=== PATIENT | male | born 1960 | race Caucasian/White ===

== ENCOUNTER 2020-06-09 06:14 | Inpatient (IN) | payer MEDICARE, OTHER ==
[~2020-06-09] VITALS: Ht 182.9 cm; Wt 156.0 kg
[~2020-06-09 06:14] MED LIST: Amox Tr-K Clv1 EAC2 PO; CARV25 PO; CEPH500 PO; FERSU300 PO; GABA300 PO; HYDACE5; HYDACE5 PO; HYDR1TAB94 PO; Hydrocodone-Ap1 EA23 PO; JANUMET XR 50-1 EAC1 PO; LORA1 PO; Metformin HCl500 M1 PO; OXYACE7.5T PO; RXOXYACE PO; SULTRIDS PO; TRIBENZOR 40-51 EAC1 PO; VERA180ER PO
--- NOTE | 2020-06-09 06:30 | NUR ---
Ambulatory in Day Surgery. Surgical site prepped with 2% Chlorhexidine cloth wipE. History, Chart, Medications and Allergies reviewed before start of procedure. Lungs clear T/O to Auscultation. Pre-Op teaching done. Pt verbalizes understanding.
--- NOTE | 2020-06-09 15:00 | NUR ---
PATIENT ARRIVED FROM THE OR VIA STRETCHER. HE IS ALERT. PRESENT AT THE BEDSIDE. ADMIT COMPLETE, SEE ASSESSMENT FOR MORE. PATIENT ON EPIDURAL 10MEQ/HR WITH 4MEQ PATIENT ADMIN BOLUS Q10MIN. PATIENT REPORTS ABSENT SENSATION IN FEET R/T DM NEUROPATHY. SENSATION THROUGHOUT, INCREASE NUMBING SENSATION AT MID UMBILICUS. HAGER PATENT AND DRIANING CLEAR DARK YELLOW URINE. LR@125ML/HR RUNNING. PATIENT AND ORIENTED TO ROOM, UNIT AND VISITOR POLICY. WILL CONT TO MONITOR.
--- NOTE | 2020-06-09 17:12 | NUR ---
SHIFT SUMMARY NO ACUTE CHANGES SINCE ADMIT. PATIENT REPORTS PAIN AT 2/10. APPEARS TO BE RESTING COMFORTABLE IN BED WITH CPAP ON AND 2L O2 BLEED. REMAINS AT BEDSIDE. SURGEON WAS IN TO SEE HIM AND GO OVER MORE DETAILS OF THE SURGERY AND PLAN FOR CARE. AND PATIENT WERE ABLE TO ASK QUESTIONS. WILL CONT TO MONITOR AND REPORT OFF TO OIL FIELD PUMPER.
[2020-06-10 04:39] LABS: BASOPHILS ABSOLUTE AUTO 0.01 K/mm3 (0.00-0.23); BASOPHILS PERCENT AUTO 0 % (0-2); EOSINOPHILS PERCENT AUTO 0 % (0-6); Hemoglobin 8.6 g/dL (13.5-17.5); IMMATURE GRAN ABSOLUTE AUTO 0.03 K/mm3 (0.00-0.10); IMMATURE GRAN PERCENT AUTO 0 % (0-1); LYMPHOCYTES ABSOLUTE AUTO 1.15 K/mm3 (0.84-5.20); LYMPHOCYTES PERCENT AUTO 15 % (21-46); MONOCYTES ABSOLUTE AUTO 0.56 K/mm3 (0.16-1.47); MONOCYTES PERCENT AUTO 7 % (4-13); Mean Corpuscular HGB 20.9 pg (26.0-34.0); Mean Corpuscular HGB Conc 29.7 g/dL (31.5-36.5); Mean Corpuscular Volume 70 fL (80-100); Mean Platelet Volume 9.4 fL (9.1-12.4); NEUTROPHILS ABSOLUTE AUTO 6.18 K/mm3 (1.96-9.15); NEUTROPHILS PERCENT AUTO 78 % (41-73); Platelet Count 472 K/mm3 (150-400); RDW Coefficient Variation 16.8 % (11.7-14.2); RDW Standard Deviation 41.8 fL (35.1-46.3); Red Blood Cell Count 4.12 M/mm3 (4.30-5.90); White Blood Cell Count 7.93 K/mm3 (4.00-11.30)
[2020-06-10 04:57] LABS: Anion Gap 7 mmol/L (6-16); Blood Urea Nitrogen 9 mg/dL (8-24); Bun/Creatinine Ratio 10.9 (12.0-20.0); CO2, Blood 29 mmol/L (21-32); Calcium, Blood 9.2 mg/dL (8.5-10.1); Chloride, Blood 105 mmol/L (98-108); Creatinine, Blood 0.83 mg/dL (0.60-1.20); Glomerular Filtration Rate >60 (60-); Glucose, Blood 128 mg/dL (70-99); Potassium, Blood 3.9 mmol/L (3.5-5.5); Sodium, Blood 141 mmol/L (136-145)
--- NOTE | 2020-06-10 05:12 | NUR ---
SHIFT SUMMARY POD1 LAP CONVERTED TO OPEN LAP CECILY SIGMOID. VSS. PT REPORTS PAIN LEVEL 0-3/10 T/O SHIFT. HE HAS FULL SENSATION. PT HAS ABD BINDER, ABD SHIRLEY DRESSING IS CDI. ABD MARLEY DRESSING WITH SEROSANG DRAIN. EPIDURAL REMAIN CDI, NO LEAKS NOTED. CLEAR DIET, TOLERATING ICE CHIP AND WATER DENIES N/V. INFUSING LR AND ABX ADMINSTERED. PT USED CPAP MACHINE AT BEDTIME. SLEPT T/O SHIFT. PT ALSO DENIES CP AND SOB. HE ALSO REPORTS NUMBNESS ON BILATERAL FEET (CHRONIC). CALL LIGHT WITHIN REACH. WILL PASS REPORT TO AM NURSE.
[2020-06-10 05:13] LABS: TOTAL CELLS COUNTED 2
--- NOTE | 2020-06-10 08:01 | NUR ---
EPIDURAL ASSESSMENT REDUCED SENSATION L2-L3 AND BELOW, NEUROPATHY OF LOWER LEGS AND FEET AT BASELINE. MOVES ANKLES AND TOES WELL. FEET WARM WITH STRONG PEDAL PULSES BILATERALLY.
--- NOTE | 2020-06-10 13:56 | NUR ---
UP TO EDGE OF BED 2 NURSES ASSISTED PATIENT TO SIT AT EDGE OF BED. WEAKNESS NOTED TO LEGS AND REQUIRED MINIMAL ASSISTANCE TO MOVE LEGS. SAT AT EDGE OF BED FOR 5 MINUTES. PT'S PAIN DID INCREASE BUT HE TOLERATED THE ACTIVITY WELL. ASSISTED BACK TO SITTING UP IN BED. CHANGED ESPARZA PAD.
--- NOTE | 2020-06-10 16:35 | NUR ---
SHIFT SUMMARY PATIENT PAIN CONTROLLED BETWEEN -07/17 WITH EPIDURAL. USING RAIL SWITCH OPERATOR BUTTON OCCASIONALLY. TOLERATING CLEAR LIQUIDS. SALINE LOCKED. HAGER PATENT BUT URINE IS CONCENTRATED. BOWEL TONES PRESENT BUT PATIENT DENIES FLATUS. UP TO EDGE OF BED ONCE TODAY. TOLERATED WELL BUT NEEDED ASSISTANCE TO MOVE LEGS DUE TO WEAKNESS. EPIDURAL SENSATION CHECKS REVEAL SOME NUMBNESS TO BILAT LOWER EXTREMETIES. HOWEVER HX NEUROPATHY IN FEET IS BASELINE. SHIRLEY DRESSING CHANGED ONCE THIS SHIFT. SMALL AMOUNT OF SANGUINOUS DRAINAGE. NEW SHIRLEY DRESSING UNABLE TO OBTAIN SEAL. MIDLINE ABD INCISION, LAP SITE, AND MARLEY DRAIN SITE WNL. ABD BINDER IN PLACE. PATIENT RESTING IN BED WITH FAMILY MEMBER PRESENT. USES CPAP WITH 2L O2 NEEDED WHEN SLEEPING.
--- NOTE | 2020-06-11 03:29 | NUR ---
ELECTRIC MOTORMAN SUMMARY A/OX4, DROWSY BUT EASILY AROUSABLE WITH VERBAL STIMULI. EPIDURAL PATENT, REPORTS PAIN OF 1-2, SENSATION INTACT; ABLE TO MOVE TOES, STRONG PEDAL PULSES BILATERALLY. PT REPORTS CHRONIC N/T TO BLE. SHIRLEY AND MARLEY DRAIN C/D/I, ABD BINDER IN PLACE. USE OF CPAP WITH 2L BLEED IN, CONT. BIOX IN PLACE WITH SATS GREATER THAN 92. TOLERATING CLEAR LIQUIDS, VSS. NO ACUTE CHANGES AT THIS TIME. BED IN LOWEST POSITION WITH CALL LIGHT IN REACH. WILL CONTINUE TO MONITOR AND REPORT TO ONCOMING RN.
[2020-06-11 04:25] LABS: BASOPHILS ABSOLUTE AUTO 0.04 K/mm3 (0.00-0.23); BASOPHILS PERCENT AUTO 1 % (0-2); EOSINOPHILS ABSOLUTE AUTO 0.07 K/mm3 (0.00-0.68); EOSINOPHILS PERCENT AUTO 1 % (0-6); Hematocrit 28.2 % (37.0-53.0); Hemoglobin 8.2 g/dL (13.5-17.5); IMMATURE GRAN ABSOLUTE AUTO 0.03 K/mm3 (0.00-0.10); IMMATURE GRAN PERCENT AUTO 1 % (0-1); LYMPHOCYTES ABSOLUTE AUTO 1.16 K/mm3 (0.84-5.20); LYMPHOCYTES PERCENT AUTO 19 % (21-46); MONOCYTES PERCENT AUTO 8 % (4-13); Mean Corpuscular HGB 21.1 pg (26.0-34.0); Mean Corpuscular HGB Conc 29.1 g/dL (31.5-36.5); Mean Corpuscular Volume 73 fL (80-100); Mean Platelet Volume 9.2 fL (9.1-12.4); NEUTROPHILS ABSOLUTE AUTO 4.23 K/mm3 (1.96-9.15); NEUTROPHILS PERCENT AUTO 70 % (41-73); Platelet Count 446 K/mm3 (150-400); RDW Coefficient Variation 16.9 % (11.7-14.2); RDW Standard Deviation 43.7 fL (35.1-46.3); Red Blood Cell Count 3.89 M/mm3 (4.30-5.90); White Blood Cell Count 6.03 K/mm3 (4.00-11.30)
[2020-06-11 04:40] LABS: Anion Gap 3 mmol/L (6-16); Blood Urea Nitrogen 7 mg/dL (8-24); Bun/Creatinine Ratio 8.7 (12.0-20.0); CO2, Blood 31 mmol/L (21-32); Calcium, Blood 9.2 mg/dL (8.5-10.1); Chloride, Blood 106 mmol/L (98-108); Glomerular Filtration Rate >60 (60-); Glucose, Blood 110 mg/dL (70-99); Sodium, Blood 140 mmol/L (136-145)
--- NOTE | 2020-06-11 11:38 | NUR ---
06/11/20 1138 Maritza Montez VERIFICATIONS: EDIT CHART.
--- NOTE | 2020-06-11 18:49 | NUR ---
SHIFT SUMMARY POD 2 SIGMOID COLON RESECTION PT AA0X4. MIDLINE DRESSING CDI. PT REPORTS PAIN TOLERABLE DURING THE SHIFT. INCREASE WITH MOVEMENT BUT REMAINS TOLERABLE. PT ABLE TO SIT AT SIDE OF BED WITH TWO ASSIST. UNABLE TO STAND AT THIS TIME, PT REPORTS NUMBNESS STILL PRESENT IN R THIGH PRIMARILY, FEET NUMB AT BASELINE PER PT. DECLINES PASSING FLATUS. DENIES NAUSEA WITH REGULAR DIET. PLAN IS TO POSSIBLY REMOVE EPIDURAL TOMORROW. DENIES SOB DURING SHIFT.
--- NOTE | 2020-06-12 05:34 | NUR ---
SHIFT SUMMARY POD 1 ABD I&D, A/O X4, VSS, TOLERATING PO, NO BM THIS SHIFT, TRANSFERS WELL W/ 1 PERSON ASSIST, VOIDING WELL, DENIES PAIN T/O SHIFT. NO ACUTE EVENTS THIS SHIFT. CALL LIGHT IN REACH, WILL CONTINUE TO MONITOR AND REPORT TO ONCOMING DAY RN.
--- NOTE | 2020-06-12 05:37 | NUR ---
SHIFT SUMMARY POD3 LAP TO OPEN SIGMOID RESECTION, A/O X4, VSS, TOLERATING PO, VOIDING WELL VIA HAGER, PASSING FLATUS, NON AMBULATORY W/ EPIDURAL IN PLACE, PT HAS FULL SENSATION TO COLD, TACTILE SENSATION LIMITED TO MID ABD, DENIES PAIN. CALL LIGHT IN REACH, WILL CONTINUE TO MONITOR AND REPORT TO ONCOMING DAY RN.
--- NOTE | 2020-06-12 19:21 | NUR ---
SHIFT SUMMARY: PATIENT A&O; CALM AND COOEPRATIVE WITH CARE. EPIDURAL CATHETER D/C'd THIS SHIFT; PT TOLERATED WELL; BANDAGE IN PLACE; C/D/I. MEDICATED FOR BACK PAIN PER EMAR. HAGER IN PLACE; PATENT & DRAINING. PT/OT FOLLOWING. REPROT GIVEN TO ONCOMING RN.
--- NOTE | 2020-06-13 03:52 | NUR ---
SHIFT SUMMARY POD4 SIGMOIND RESECTION, A/O X4, VSS, TOLERATING PO, PASSING FLATUS, NO BM THIS SHIFT, VOIDING WELL VIA HAGER, WILL REMOVE BEFORE END OF SHIFT, DENIES PAIN T/O SHIFT, RESTING COMFORTABLY. PT OCCASIONALLY DESATS TO HIGH 80'S WHILE SLEEPING W/ CPAP IN PLACE AND 2L 02, INCREASED TO 3L. DRESSING REMAINED C/D/I, SHIRLEY UNABLE TO GET GOOD SEAL DUE TO ADJACENT MARLEY DRAIN LINE AND ASSOCIATED BANDAGE. CALL LIGTH IN REACH, WILL CONTINUE TO MONITOR AND REPORT TO ONCOMING DAY RN.
--- NOTE | 2020-06-13 15:31 | NUR ---
pt has voided x 2 since glaser removed. pt's visiting with pt. pt is independent in room
--- NOTE | 2020-06-13 16:57 | NUR ---
SHIFT SUMMARY: PT REMAINED A/O X 4, PLEASANT/COOPERATIVE, UP IN CHAIR ALL SHIFT, REPORTS PAIN CONTROLLED WELL PER MAR, TOLERATED PO INTAKE, NO N/V. PT VOIDING FOLLOWING HAGER REMOVAL. PT'S MARLEY DRAIN WITH 110 ML SEROSANGUINOUS LIQUID OUT, PATENT AND DRAINING. PT'S MIDLINE INCISION WITH SHIRLEY DRESSING C/D/I. MARLEY DRAIN POSITIONED SUCH THAT SHIRLEY IS NOT COMPRESSED. AWARE. OLD EPIDURAL SITE WNL.
--- NOTE | 2020-06-14 04:26 | NUR ---
SHIFT SUMMARY POD 5 LAP TO OPEN SIG COLON RESECTION, A/O X4, VSS, TOLERATING PO, PASSING FLATUS BUT NO BM THIS SHIFT, INDEPENDENT IN ROOM, SHOWERED BEFORE BED, PLACED NEW DRESSINGS (SHIRLEY CHANGED TO MEDIPORE DUE TO ADJACENT MARLEY DISRUPTING SHIRLEY SEAL), PT REPORTS FEELING "MUCH BETTER" AFTER SHOWERING, INDEPENDENT IN ROOM, VOIDING WELL. INCISION CLEAN AND DRY W/ NO SIGNS OF INFECTION. CALL LIGHT IN REACH, WILL CONTINUE TO MONITOR AND REPORT TO ONCOMING DAY RN.
[2020-06-14 10:25] LABS: BASOPHILS ABSOLUTE AUTO 0.05 K/mm3 (0.00-0.23); BASOPHILS PERCENT AUTO 1 % (0-2); EOSINOPHILS ABSOLUTE AUTO 0.42 K/mm3 (0.00-0.68); EOSINOPHILS PERCENT AUTO 7 % (0-6); Hematocrit 31.7 % (37.0-53.0); Hemoglobin 9.1 g/dL (13.5-17.5); IMMATURE GRAN ABSOLUTE AUTO 0.03 K/mm3 (0.00-0.10); IMMATURE GRAN PERCENT AUTO 1 % (0-1); LYMPHOCYTES ABSOLUTE AUTO 1.09 K/mm3 (0.84-5.20); LYMPHOCYTES PERCENT AUTO 18 % (21-46); MONOCYTES ABSOLUTE AUTO 0.31 K/mm3 (0.16-1.47); MONOCYTES PERCENT AUTO 5 % (4-13); Mean Corpuscular HGB 20.6 pg (26.0-34.0); Mean Corpuscular HGB Conc 28.7 g/dL (31.5-36.5); Mean Corpuscular Volume 72 fL (80-100); Mean Platelet Volume 9.1 fL (9.1-12.4); NEUTROPHILS ABSOLUTE AUTO 4.25 K/mm3 (1.96-9.15); NEUTROPHILS PERCENT AUTO 69 % (41-73); Platelet Count 522 K/mm3 (150-400); RDW Standard Deviation 42.4 fL (35.1-46.3); Red Blood Cell Count 4.41 M/mm3 (4.30-5.90); White Blood Cell Count 6.15 K/mm3 (4.00-11.30)
[2020-06-14 10:40] LABS: Anion Gap 6 mmol/L (6-16); Blood Urea Nitrogen 8 mg/dL (8-24); Bun/Creatinine Ratio 10.4 (12.0-20.0); CO2, Blood 29 mmol/L (21-32); Calcium, Blood 9.8 mg/dL (8.5-10.1); Chloride, Blood 104 mmol/L (98-108); Creatinine, Blood 0.77 mg/dL (0.60-1.20); Glomerular Filtration Rate >60 (60-); Glucose, Blood 211 mg/dL (70-99); Potassium, Blood 4.1 mmol/L (3.5-5.5); Sodium, Blood 139 mmol/L (136-145)
[2020-06-14] MEDS ORDERED: HYDR1TAB94 PO (12:34)
--- NOTE | 2020-06-14 13:49 | NUR ---
DISCHARGE PT DISCHARGED HOME FROM UNIT AT APROX 1345. PT AND GIVEN WRITTEN AND VERBAL DISCHARGE INSTRUCTIONS AND BOTH VERBALIZED UNDERSTANDING OF THESE INSTRUCTIONS. IV REMOVED, PT TOLERATED WELL. WHEELCHAIR TO CAR.
[2020-07-06] MEDS ORDERED: OMEP20ER PO (14:06)
== END 2020-06-14 13:35 | disposition home or self-care (01) | DRG 330 ==
LOC: SURS 06:14 → PRE IP 07:30 → SURS 16:39
PROVIDERS: ADMIT Surgery
PROC: 0DTN0ZZ Resection of Sigmoid Colon, Open Approach (ICD-10-PCS; principal; 2020-06-09 07:30)
PROC: 0DJD4ZZ Inspection of Lower Intestinal Tract, Percutaneous Endoscopic Approach (ICD-10-PCS; 2020-06-09 07:30)
DX: C18.7 Malignant neoplasm of sigmoid colon (principal); Z68.43 Body mass index [BMI] 50.0-59.9, adult; J45.909 Unspecified asthma, uncomplicated; E11.9 Type 2 diabetes mellitus without complications; Z98.890 Other specified postprocedural states; Z79.899 Other long term (current) drug therapy; Z79.84 Long term (current) use of oral hypoglycemic drugs; E66.01 Morbid (severe) obesity due to excess calories; I10 Essential (primary) hypertension
CPT/HCPCS: 36415; 80048; 82947; 85025; 86850; 86900; 86901; 88309; 94660; 94762; A9270; J0295; J0690; J1100; J1650; J1885; J2250; J2370; J2405; J2704; J2710; J3010; J7120

== ENCOUNTER 2020-07-12 07:56 | Day surgery (SDC) | payer MEDICARE, OTHER ==
[~2020-07-12 07:56] MED LIST changes: +OMEP20ER PO
--- NOTE | 2020-07-12 11:34 | NUR ---
Dressing to procedure site clean, dry, intact with no visible drainage, swelling, erythema or bruising noted.
--- NOTE | 2020-07-12 11:52 | NUR ---
Discharge instructions reviewed with patient. Patient verbalizes understanding. Copy given to patient to take home. Patient States Post-Procedure ride home has been arranged.
--- NOTE | 2020-07-12 12:05 | NUR ---
Dressing to procedure site clean, dry, intact with no visible drainage, swelling, erythema or bruising noted. Discharged via wheelchair to private car for ride home.
== END 2020-07-12 12:20 | disposition home or self-care (01) ==
LOC: ORSCMMR 07:56 → ORD 09:45 → ORSCMMR 12:20
PROVIDERS: Surgery
PROC: 05HM33Z Insertion of Infusion Device into Right Internal Jugular Vein, Percutaneous Approach (ICD-10-PCS; principal; 2020-07-12 09:45)
PROC: B5131ZA Fluoroscopy of Right Jugular Veins using Low Osmolar Contrast, Guidance (ICD-10-PCS; principal; 2020-07-12 09:45)
DX: C18.9 Malignant neoplasm of colon, unspecified (principal); I10 Essential (primary) hypertension; E11.9 Type 2 diabetes mellitus without complications; J45.909 Unspecified asthma, uncomplicated; Z79.84 Long term (current) use of oral hypoglycemic drugs; Z79.899 Other long term (current) drug therapy
CPT/HCPCS: 77001; 82947; A9270; C1788; J0690; J1100; J1642; J2250; J2405; J2704; J3010; J7120

== ENCOUNTER → 2020-10-23 | Outpatient (CLI) | payer OTHER ==
[2020-10-23 13:27] LABS: BASOPHILS ABSOLUTE AUTO 0.02 K/mm3 (0.00-0.23); BASOPHILS PERCENT AUTO 1 % (0-2); EOSINOPHILS ABSOLUTE AUTO 0.05 K/mm3 (0.00-0.68); EOSINOPHILS PERCENT AUTO 2 % (0-6); Hematocrit 36.2 % (37.0-53.0); Hemoglobin 12.6 g/dL (13.5-17.5); IMMATURE GRAN ABSOLUTE AUTO 0.01 K/mm3 (0.00-0.10); IMMATURE GRAN PERCENT AUTO 0 % (0-1); LYMPHOCYTES ABSOLUTE AUTO 1.19 K/mm3 (0.84-5.20); LYMPHOCYTES PERCENT AUTO 45 % (21-46); MONOCYTES ABSOLUTE AUTO 0.05 K/mm3 (0.16-1.47); MONOCYTES PERCENT AUTO 2 % (4-13); Mean Corpuscular HGB 28.6 pg (26.0-34.0); Mean Corpuscular HGB Conc 34.8 g/dL (31.5-36.5); Mean Corpuscular Volume 82 fL (80-100); Mean Platelet Volume 10.7 fL (9.1-12.4); NEUTROPHILS ABSOLUTE AUTO 1.34 K/mm3 (1.96-9.15); NEUTROPHILS PERCENT AUTO 50 % (41-73); Platelet Count 182 K/mm3 (150-400); RDW Coefficient Variation 18.2 % (11.7-14.2); RDW Standard Deviation 54.3 fL (35.1-46.3); White Blood Cell Count 2.66 K/mm3 (4.00-11.30)
== END | disposition home or self-care (01) ==
LOC: LAB SHORT 13:23
PROVIDERS: Physician Assistant
DX: R22.42 Localized swelling, mass and lump, left lower limb (principal)
CPT/HCPCS: 85025

== ENCOUNTER → 2020-12-22 | Outpatient (CLI) | payer OTHER | END | disposition home or self-care (01) | LOC: LAB SHORT 10:00 | DX: E11.621 Type 2 diabetes mellitus with foot ulcer (principal); L97.509 Non-pressure chronic ulcer of other part of unspecified foot with unspecified severity | CPT/HCPCS: 87070; 87205 ==

== ENCOUNTER 2022-02-17 06:04 | Day surgery (SDC) | payer OTHER ==
[~2022-02-17] VITALS: Ht 185.4 cm; Wt 183.3 kg
[2022-02-17] MEDS ORDERED: LOSA25 PO (06:30)
[2022-02-17] MEDS ORDERED: PIOG15 PO (06:30)
[2022-02-17] MEDS ORDERED: AMLO5 PO (06:31)
--- NOTE | 2022-02-17 07:29 | NUR ---
02/17/22 0729 Mathieu Laureano History, Chart, Medications and Allergies reviewed before start of procedure.MONITOR INTACT WITH CONTINUOUS PULSE OXIMETRY AND INTERMITTENT BP.3-LEAD EKG REVIEWED WITH PHYSICIAN PRIOR TO START OF PROCEDURE.O2 VIA POM INTACT THROUGHOUT SEDATION/PROCEDURE.
--- NOTE | 2022-02-17 08:34 | NUR ---
Discharge instructions reviewed with patient. Patient verbalizes understanding. Copy given to patient to take home. NO C/O PAIN OR NAUSEA, PT TOLERATING PO FLUIDS AND FOOD. PT STATES HE IS READY TO GO HOME. Discharged via wheelchair to private car for ride home.
== END 2022-02-17 08:38 | disposition home or self-care (01) ==
LOC: ORSCMMR 06:04 → ORD 07:30 → ORSCMMR 08:38
PROVIDERS: Surgery
PROC: 0DJD8ZZ Inspection of Lower Intestinal Tract, Via Natural or Artificial Opening Endoscopic (ICD-10-PCS; principal; 2022-02-17 07:30)
DX: Z85.038 Personal history of other malignant neoplasm of large intestine (principal); I10 Essential (primary) hypertension; E11.9 Type 2 diabetes mellitus without complications; J45.909 Unspecified asthma, uncomplicated; G47.33 Obstructive sleep apnea (adult) (pediatric); E66.9 Obesity, unspecified; Z68.43 Body mass index [BMI] 50.0-59.9, adult; Z79.84 Long term (current) use of oral hypoglycemic drugs; Z79.899 Other long term (current) drug therapy
CPT/HCPCS: 82947; J2704; J7120

== ENCOUNTER 2023-05-17 10:19 | Day surgery (SDC) | payer OTHER ==
[2023-05-17] VITALS (12 sets, daily range): BP systolic 130–183; BP diastolic 50–98
[~2023-05-17] VITALS: Ht 182.9 cm; Wt 185.7 kg
[~2023-05-17 10:19] MED LIST changes: +AMLO5 PO; +LOSA25 PO; +ONDA4ODT MM; +OZEMPIC1 MG/0.72 SC; +PIOG15 PO; +PREGABALIN25 MG PO
[2023-05-17] MEDS ORDERED: CeFAZolin Sodium 2,000 MG in NS 50 ML IV SCH (11:40)
[2023-05-17] MEDS ORDERED: Lactated Ringer's 1,000 ML IV SCH (11:40)
[2023-05-17] MEDS ORDERED: CeFAZolin Sodium 1,000 MG in NS 50 ML IV ONE (12:20)
[2023-05-17] MEDS ORDERED: CeFAZolin 1000MG in D5W 50 ML IV ONE (12:20)
--- NOTE | 2023-05-17 12:38 | NUR ---
Patient up to Ambulate independently. Gait steady. Surgical site prepped with 2% Chlorhexidine cloth wipe. History, Chart, Medications and Allergies reviewed before start of procedure.Lungs clear T/O to Auscultation. Patient confirms NPO status and agrees with scheduled surgery. Pre-Op teaching done. Pt verbalizes understanding. Patient States Post-Procedure ride home has been arranged. Patient reports completing Chlorhexadine shower X2 prior to admission to hospital.
[2023-05-17 13:00] LABS: BASOPHILS ABSOLUTE AUTO 0.03 K/mm3 (0.00-0.23); BASOPHILS PERCENT AUTO 1 % (0-2); EOSINOPHILS PERCENT AUTO 3 % (0-6); Hemoglobin 14.9 g/dL (13.5-17.5); IMMATURE GRAN ABSOLUTE AUTO 0.01 K/mm3 (0.00-0.10); IMMATURE GRAN PERCENT AUTO 0 % (0-1); LYMPHOCYTES ABSOLUTE AUTO 1.14 K/mm3 (0.84-5.20); LYMPHOCYTES PERCENT AUTO 18 % (21-46); MONOCYTES ABSOLUTE AUTO 0.39 K/mm3 (0.16-1.47); MONOCYTES PERCENT AUTO 6 % (4-13); Mean Corpuscular HGB 30.8 pg (26.0-34.0); Mean Corpuscular HGB Conc 36.3 g/dL (31.5-36.5); Mean Corpuscular Volume 85 fL (80-100); Mean Platelet Volume 9.6 fL (9.1-12.4); NEUTROPHILS ABSOLUTE AUTO 4.74 K/mm3 (1.96-9.15); NEUTROPHILS PERCENT AUTO 73 % (41-73); Platelet Count 239 K/mm3 (150-400); RDW Standard Deviation 39.7 fL (35.1-46.3); Red Blood Cell Count 4.84 M/mm3 (4.30-5.90); White Blood Cell Count 6.51 K/mm3 (4.00-11.30)
[2023-05-17 13:29] LABS: Albumin, Blood 3.6 g/dL (3.4-5.0); Albumin/Globulin Ratio 1.2 (0.8-1.8); Bilirubin, Total 0.8 mg/dL (0.1-1.0); Bun/Creatinine Ratio 12.9 (12.0-20.0); Calcium, Blood 10.3 mg/dL (8.5-10.1); Creatinine, Blood 0.78 mg/dL (0.60-1.20); Globulin, Blood 3.1 g/dL (2.2-4.0); Total Protein, Blood 6.7 g/dL (6.4-8.2)
[2023-05-17] MEDS ORDERED: Bupivacaine 0.5% HCl 5 MG/ML 30MLVIAL ONE (13:30)
[2023-05-17] MEDS ORDERED: Lidocaine HCl 1% 30 ML SDV ONE (13:30)
[2023-05-17] MEDS ORDERED: propofoL 0 ML IV ONE (13:36)
[2023-05-17] MEDS ORDERED: FentaNYL Citrate 50 MCG/ML 2 ML Injection ONE (13:37)
[2023-05-17] MEDS ORDERED: propofoL 20 ML IV ONE (13:48)
[2023-05-17] MEDS ORDERED: Dexamethasone Sod Phos 10 MG/ML 1ML VIAL ONE (14:10)
[2023-05-17] MEDS ORDERED: Ondansetron HCl 2 MG / ML 2ML Vial ONE (14:24)
[2023-05-17] MEDS ORDERED: HYDROcodone 5-APAP 325 TAB PO PRN (15:10)
--- NOTE | 2023-05-17 16:06 | NUR ---
Patient up to Ambulate independently. Gait steady. VSS AND CONSISTENT WITH PT BASELINE. PT HAS NO COMPLAINTS AND VERBALIZES READINESS TO GO HOME. Discharge instructions reviewed with patient. Patient verbalizes understanding. Copy given to patient to take home. Dressing to procedure site clean, dry, intact with no visible drainage, swelling, erythema or bruising noted. Patient States Post-Procedure ride home has been arranged. Discharged via wheelchair to private car for ride home.
== END 2023-05-17 16:15 | disposition home or self-care (01) ==
LOC: ORSCMMR 10:19
PROVIDERS: Surgery
PROC: 0JH63WZ Insertion of Totally Implantable Vascular Access Device into Chest Subcutaneous Tissue and Fascia, Percutaneous Approach (ICD-10-PCS; principal; 2023-05-17 11:45)
PROC: B543ZZA Ultrasonography of Right Jugular Veins, Guidance (ICD-10-PCS; principal; 2023-05-17 11:45)
PROC: 05HM33Z Insertion of Infusion Device into Right Internal Jugular Vein, Percutaneous Approach (ICD-10-PCS; principal; 2023-05-17 11:45)
DX: C18.7 Malignant neoplasm of sigmoid colon (principal); I10 Essential (primary) hypertension; G47.33 Obstructive sleep apnea (adult) (pediatric); E11.9 Type 2 diabetes mellitus without complications; E66.01 Morbid (severe) obesity due to excess calories; Z68.43 Body mass index [BMI] 50.0-59.9, adult; Z79.84 Long term (current) use of oral hypoglycemic drugs; Z79.899 Other long term (current) drug therapy
CPT/HCPCS: 77001; 80053; 82947; 85025; 93005; 93010; C1788; J0690; J1100; J1642; J2405; J2704; J3010; J7120

== ENCOUNTER → 2024-04-14 | Outpatient (CLI) | payer OTHER | END | disposition home or self-care (01) | LOC: LAB 17:29 → LAB SHORT 17:29 | DX: E11.621 Type 2 diabetes mellitus with foot ulcer (principal); L97.519 Non-pressure chronic ulcer of other part of right foot with unspecified severity | CPT/HCPCS: 87070; 87205 ==

== ENCOUNTER → 2024-06-17 | Outpatient (CLI) | payer OTHER | LOC: LAB SHORT 11:51 → LAB 11:51 | DX: C18.7 Malignant neoplasm of sigmoid colon (principal) | CPT/HCPCS: 82378 ==

== ENCOUNTER 2024-07-01 10:29 | Emergency (ER) | payer OTHER ==
[~2024-07-01] VITALS: Ht 182.9 cm; Wt 154.2 kg
[2024-07-01 11:16] LABS: BASOPHILS ABSOLUTE AUTO 0.02 K/mm3 (0.00-0.23); BASOPHILS PERCENT AUTO 0 % (0-2); EOSINOPHILS ABSOLUTE AUTO 0.01 K/mm3 (0.00-0.68); EOSINOPHILS PERCENT AUTO 0 % (0-6); Hematocrit 43.2 % (37.0-53.0); Hemoglobin 14.9 g/dL (13.5-17.5); IMMATURE GRAN ABSOLUTE AUTO 0.03 K/mm3 (0.00-0.10); IMMATURE GRAN PERCENT AUTO 0 % (0-1); LYMPHOCYTES ABSOLUTE AUTO 0.62 K/mm3 (0.84-5.20); LYMPHOCYTES PERCENT AUTO 7 % (21-46); MONOCYTES ABSOLUTE AUTO 0.98 K/mm3 (0.16-1.47); MONOCYTES PERCENT AUTO 12 % (4-13); Mean Corpuscular HGB 30.2 pg (26.0-34.0); Mean Corpuscular HGB Conc 34.5 g/dL (31.5-36.5); Mean Corpuscular Volume 87 fL (80-100); Mean Platelet Volume 9.7 fL (9.1-12.4); NEUTROPHILS ABSOLUTE AUTO 6.83 K/mm3 (1.96-9.15); NEUTROPHILS PERCENT AUTO 81 % (41-73); Platelet Count 435 K/mm3 (150-400); RDW Coefficient Variation 14.1 % (11.7-14.2); RDW Standard Deviation 44.2 fL (35.1-46.3); Red Blood Cell Count 4.94 M/mm3 (4.30-5.90); White Blood Cell Count 8.49 K/mm3 (4.00-11.30)
[2024-07-01 11:47] LABS: Albumin, Blood 2.9 g/dL (3.4-5.0); Albumin/Globulin Ratio 0.8 (0.8-1.8); Bun/Creatinine Ratio 9.9 (12.0-20.0); Calcium, Blood 10.9 mg/dL (8.5-10.1); Creatinine, Blood 0.7 mg/dL (0.60-1.20); Globulin, Blood 3.8 g/dL (2.2-4.0); Total Protein, Blood 6.7 g/dL (6.4-8.2)
[2024-07-01] MEDS ORDERED: NS 1,000 ML IV SCH (12:30)
[2024-07-01] MEDS ORDERED: Ondansetron HCl 2 MG / ML 2ML Vial IV ONE (12:30)
[2024-07-01] MEDS ORDERED: Ketorolac Tromethamine 15mg Vial IV ONE (12:30)
[2024-07-01] MEDS ORDERED: METO10 PO (14:42)
[2024-07-01] MEDS ORDERED: Roxicodone5 MG PO (14:42)
[2024-07-01 15:00] VITALS: BP 145/87
== END 2024-07-01 15:08 | disposition home or self-care (01) ==
LOC: ER 10:29
PROVIDERS: Emergency Medicine
DX: R10.84 Generalized abdominal pain (principal); G89.3 Neoplasm related pain (acute) (chronic); C78.7 Secondary malignant neoplasm of liver and intrahepatic bile duct; C18.9 Malignant neoplasm of colon, unspecified; E11.9 Type 2 diabetes mellitus without complications
CPT/HCPCS: 74018; 74177; 80053; 83690; 85025; 96361; 96374; 96375; 99284-25; J1885; J2405; J7030; Q9967

== ENCOUNTER 2024-07-04 18:48 | Emergency (ER) | payer OTHER ==
[~2024-07-04] VITALS: Ht 190.5 cm; Wt 154.2 kg
[~2024-07-04 18:48] MED LIST changes: +METO10 PO; +Roxicodone5 MG PO
[2024-07-04] MEDS ORDERED: Ondansetron HCl 2 MG / ML 2ML Vial IV ONE (20:00)
[2024-07-04] MEDS ORDERED: Morphine Sulfate 4 MG/1 ML Injection IV ONE ×2 (20:00→21:35)
[2024-07-04] MEDS ORDERED: NS 1,000 ML IV SCH (20:15)
[2024-07-04 20:36] LABS: Albumin, Blood 2.4 g/dL (3.4-5.0); Albumin/Globulin Ratio 0.8 (0.8-1.8); Bilirubin, Total 2.8 mg/dL (0.1-1.0); Calcium, Blood 9.2 mg/dL (8.5-10.1); Creatinine, Blood 0.68 mg/dL (0.60-1.20); Globulin, Blood 3.1 g/dL (2.2-4.0); Potassium, Blood 3.7 mmol/L (3.5-5.5); Total Protein, Blood 5.5 g/dL (6.4-8.2)
[2024-07-04 20:47] LABS: BASOPHILS ABSOLUTE AUTO 0.01 K/mm3 (0.00-0.23); BASOPHILS PERCENT AUTO 0 % (0-2); EOSINOPHILS PERCENT AUTO 0 % (0-6); Hematocrit 40.8 % (37.0-53.0); Hemoglobin 13.5 g/dL (13.5-17.5); IMMATURE GRAN ABSOLUTE AUTO 0.08 K/mm3 (0.00-0.10); IMMATURE GRAN PERCENT AUTO 2 % (0-1); LYMPHOCYTES ABSOLUTE AUTO 0.33 K/mm3 (0.84-5.20); LYMPHOCYTES PERCENT AUTO 6 % (21-46); MONOCYTES ABSOLUTE AUTO 0.75 K/mm3 (0.16-1.47); MONOCYTES PERCENT AUTO 15 % (4-13); Mean Corpuscular HGB 30.1 pg (26.0-34.0); Mean Corpuscular HGB Conc 33.1 g/dL (31.5-36.5); Mean Corpuscular Volume 91 fL (80-100); Mean Platelet Volume 10.1 fL (9.1-12.4); NEUTROPHILS ABSOLUTE AUTO 3.98 K/mm3 (1.96-9.15); NEUTROPHILS PERCENT AUTO 77 % (41-73); Platelet Count 497 K/mm3 (150-400); RDW Coefficient Variation 14.7 % (11.7-14.2); RDW Standard Deviation 48.5 fL (35.1-46.3); Red Blood Cell Count 4.49 M/mm3 (4.30-5.90); White Blood Cell Count 5.15 K/mm3 (4.00-11.30)
[2024-07-04 22:40] VITALS: BP 192/110
[2024-07-04] MEDS ORDERED: Percocet 10-321 EACH PO (22:42)
== END 2024-07-04 23:04 | disposition home or self-care (01) ==
LOC: ER 18:48
PROVIDERS: Student in an Organized Health Care Education/Training Program
DX: R06.02 Shortness of breath (principal); E11.9 Type 2 diabetes mellitus without complications; I10 Essential (primary) hypertension; G47.33 Obstructive sleep apnea (adult) (pediatric); Z79.899 Other long term (current) drug therapy; Z88.0 Allergy status to penicillin
CPT/HCPCS: 71260; 80053; 84484; 85025; 93005; 93010; 96374-59; 96375-59; 96376-59; 99285-25; J1642; J2270; J2405; J7030; Q9967

== ENCOUNTER 2024-07-16 14:26 | Inpatient (IN) | payer OTHER ==
[~2024-07-16] VITALS: Ht 182.9 cm; Wt 154.2 kg
[~2024-07-16 14:26] MED LIST changes: +Percocet 10-321 EACH PO
[2024-07-16] MEDS ORDERED: Dextrose 50% 50 ML Syringe IV ONE (15:30)
[2024-07-16] MEDS ORDERED: Ondansetron HCl 2 MG / ML 2ML Vial IV ONE ×2 (15:35→19:35)
[2024-07-16 17:39] LABS: Hematocrit 42.4 % (37.0-53.0); Hemoglobin 14.4 g/dL (13.5-17.5); Mean Corpuscular HGB 29.8 pg (26.0-34.0); Mean Corpuscular Volume 88 fL (80-100); Mean Platelet Volume 10.1 fL (9.1-12.4); NRBC ABSOLUTE 0.03 K/mm3 (0.00-0.02); NRBC Auto 0.2 /100 WBC (0.0-0.2); Platelet Count 348 K/mm3 (150-400); RDW Coefficient Variation 18.1 % (11.7-14.2); RDW Standard Deviation 54.7 fL (35.1-46.3); Red Blood Cell Count 4.83 M/mm3 (4.30-5.90); White Blood Cell Count 15.69 K/mm3 (4.00-11.30)
[2024-07-16 18:02] LABS: Albumin/Globulin Ratio 0.4 (0.8-1.8); BAND PERCENT MAN 3 % (0-8); BASOPHILS PERCENT MAN 0 % (0-2); Bilirubin, Total 11.1 mg/dL (0.1-1.0); Bun/Creatinine Ratio 29.7 (12.0-20.0); Calcium, Blood 10.1 mg/dL (8.5-10.1); Creatinine, Blood 2.76 mg/dL (0.60-1.20); EOSINOPHILS PERCENT MAN 0 % (0-6); Globulin, Blood 4.5 g/dL (2.2-4.0); LYMPHOCYTES ABSOLUTE MAN 0.94 K/mm3 (0.84-5.20); LYMPHOCYTES PERCENT MAN 6 % (21-46); METAMYELOCYTE ABSOLUTE MAN 0.31 K/mm3 (0.00-0.00); METAMYELOCYTE PERCENT MAN 2 % (0-0); MONOCYTES ABSOLUTE MAN 0.62 K/mm3 (0.16-1.47); MONOCYTES PERCENT MAN 4 % (4-13); MYELOCYTE ABSOLUTE MAN 0.15 K/mm3 (0.00-0.00); MYELOCYTE PERCENT MAN 1 % (0-0); NEUTROPHILS ABSOLUTE MAN 13.65 K/mm3 (1.96-9.15); Potassium, Blood 4.7 mmol/L (3.5-5.5); SEG NEUTROPHILS PERCENT MAN 84 % (41-73); TOTAL CELLS COUNTED 100; Total Protein, Blood 6.5 g/dL (6.4-8.2)
[2024-07-16 20:19] LABS: Source, Urine Clean Catch
[2024-07-16 20:44] LABS: Appearance, Urine Hazy (Clear); Blood, Urine 1+ (Neg); Color, Urine Amber (P-Yellow); Glucose Qualitative, Urine Neg (Neg); Ketones, Urine Neg (Neg); Leukocyte Esterase, Urine 3+ (Neg); Nitrite, Urine Neg (Neg); Protein, Urine 2+ (Neg); Urobilinogen, Urine 1+ (Normal)
[2024-07-16 20:57] LABS: Bilirubin, Urine 2+ (Neg)
[2024-07-16 20:58] LABS: Bacteria Mod /hpf; Red Blood Cells, Urine 0-2 /hpf (0-2); Squamous Epithelial Cells Mod /hpf (Few); Yeast/Fungi Urine Few /hpf
[2024-07-16] MEDS ORDERED: NS 1,000 ML IV SCH (22:15)
[2024-07-16 22:42] LABS: Beta-hydroxybutyrate 3.3 mg/dL (0.2-2.8); Magnesium, Blood 2.1 mg/dL (1.6-2.4); Phosphorus, Blood 4.1 mg/dL (2.5-4.9)
[2024-07-16 22:43] LABS: Bicarbonate Venous 22.3 mmol/L (24.0-30.0); PCO2 Venous 36.4 mmHg (38-42); pH Blood Venous 7.39 (7.34-7.37)
[2024-07-16] MEDS ORDERED: HYDROmorphone HCl/Pf 1MG SYR IV PRN (23:00)
[2024-07-16] MEDS ORDERED: MetroNIDAZOLE 500MG/NS 100 ml 100 ML IV ONE (23:40)
[2024-07-16] MEDS ORDERED: CefTRIAXone Sodium 2,000 MG in NS 100 ML IV ONE (23:40)
[2024-07-17] MEDS ORDERED: Ondansetron HCl 2 MG / ML 2ML Vial IV PRN (00:35)
[2024-07-17] MEDS ORDERED: Acetaminophen 325 MG TABLET PO PRN (00:35)
[2024-07-17] MEDS ORDERED: NS 1,000 ML IV SCH ×2 (01:00→16:45)
[2024-07-17] MEDS ORDERED: HYDROmorphone HCl/Pf 1MG SYR IV ONE (01:00)
[2024-07-17 04:58] LABS: Hematocrit 37.5 % (37.0-53.0); Hemoglobin 12.7 g/dL (13.5-17.5); Mean Corpuscular HGB 29.8 pg (26.0-34.0); Mean Corpuscular HGB Conc 33.9 g/dL (31.5-36.5); Mean Corpuscular Volume 88 fL (80-100); Mean Platelet Volume 9.9 fL (9.1-12.4); NRBC ABSOLUTE 0.02 K/mm3 (0.00-0.02); NRBC Auto 0.1 /100 WBC (0.0-0.2); Platelet Count 280 K/mm3 (150-400); RDW Coefficient Variation 18.1 % (11.7-14.2); RDW Standard Deviation 55.6 fL (35.1-46.3); Red Blood Cell Count 4.26 M/mm3 (4.30-5.90); White Blood Cell Count 13.87 K/mm3 (4.00-11.30)
[2024-07-17 05:07] LABS: Albumin, Blood 1.7 g/dL (3.4-5.0); Albumin/Globulin Ratio 0.4 (0.8-1.8); Bilirubin, Total 9.2 mg/dL (0.1-1.0); Bun/Creatinine Ratio 34.7 (12.0-20.0); Calcium, Blood 9.1 mg/dL (8.5-10.1); Creatinine, Blood 2.36 mg/dL (0.60-1.20); Globulin, Blood 3.9 g/dL (2.2-4.0); Potassium, Blood 4.2 mmol/L (3.5-5.5); Total Protein, Blood 5.6 g/dL (6.4-8.2)
[2024-07-17 05:29] LABS: BAND PERCENT MAN 1 % (0-8); BASOPHILS PERCENT MAN 0 % (0-2); EOSINOPHILS PERCENT MAN 0 % (0-6); LYMPHOCYTES ABSOLUTE MAN 0.83 K/mm3 (0.84-5.20); LYMPHOCYTES PERCENT MAN 6 % (21-46); METAMYELOCYTE ABSOLUTE MAN 0.41 K/mm3 (0.00-0.00); METAMYELOCYTE PERCENT MAN 3 % (0-0); MONOCYTES ABSOLUTE MAN 0.69 K/mm3 (0.16-1.47); MONOCYTES PERCENT MAN 5 % (4-13); NEUTROPHILS ABSOLUTE MAN 11.92 K/mm3 (1.96-9.15); SEG NEUTROPHILS PERCENT MAN 85 % (41-73); TOTAL CELLS COUNTED 100
[2024-07-17] MEDS ORDERED: LONSURF 20 MG-1 EAC1 PO (06:33)
[2024-07-17 06:39] VITALS: BP 100/49
[2024-07-17 06:42] VITALS: BP 129/75
--- NOTE | 2024-07-17 07:34 | NUR ---
ADMIT TO ROOM 227 REPORT FROM FINA GUO IN ED. PATIENT TO SURGICAL FLOOR VIA [facility]. ADMITTED FOR ACUTE RENAL INSUFFICIENCY. PATIENT WITH HX OF COLON CA WITH METS TO LIVER. DX 2020 AFTER HAVE A COLONOSCOPY. PATIENT HAS BEEN TAKING A NEW CA MED AND ITS CAUSING HIM TO NOT HAVE AN APPETITE AND HAS BEEN UNABLE TO TAKE MOST OF HIM MEDICATIONS. PER REPORT PATIENT CAME TO ER BECAUSE PER HIS WATCH HIS BS HAS BEEN 68 ALL DAY LONG. IN ER BS WAS 101. WE CHECKED IT WHEN HE GOT TO ROOM AND IT IN THE 80'S. PATIENT IS ALERT AND ORIENTED, WAS ABLE TO WALK FROM [facility] TO BED. WAS MEDICATED PRIOR TO TRANSFER WITH DILAUDID IV. PATIENT REPORTS THAT PAIN IS IN HIS ABD. HE TAKES ORAL PAIN MEDS AT HOME. PATIENT REPORTS GOOD RELIEF POST DILAUDID GIVEN. IV 20G IN LT AC, FLUSHED AND PATENT. PUT A PILLOW UNDER PTS LT ARM TO REMIND HIM NOT TO BEND IT. LIPS ARE REALLY DRY, CHAPSTICK GIVEN. PATIENT ASKING FOR WATER, GIVEN. REPORT TO ONCCONNOR RN THAT IS TAKING PT.
[2024-07-17 07:46] VITALS: BP 139/89
[2024-07-17] MEDS ORDERED: Enoxaparin 40 MG/0.4 ML SYR SC SCH (09:00)
[2024-07-17] MEDS ORDERED: LONSURF PO SCH (09:00)
[2024-07-17] MEDS ORDERED: Lactated Ringer's 1,000 ML IV SCH (09:30)
[2024-07-17] MEDS ORDERED: OxyCODONE HCL 5 MG TAB PO PRN (11:50)
[2024-07-17] MEDS ORDERED: Mupirocin 2% Ointment 22 GM TOP SCH (13:10)
[2024-07-17 14:17] LABS: Bun/Creatinine Ratio 34.4 (12.0-20.0); Calcium, Blood 9.4 mg/dL (8.5-10.1); Creatinine, Blood 2.27 mg/dL (0.60-1.20); Potassium, Blood 4.4 mmol/L (3.5-5.5)
--- NOTE | 2024-07-17 16:03 | NUR ---
SHIFT SUMMARY NO ACUTE CHANGES TODAY. CONT IVF AND ENCOURAGING PO INTAKE. UP WITH 1 ASSIST USING FWW TO RESTROOM. URINE DARK IN COLOR. HAVING BMS. CHRONIC ABD PAIN MANAGED WITH 2 ROXICODONE. PLAN FOR REPEAT LABS IN AM. FAMILY AT BEDSIDE FOR SUPPORT. CALL LIGHT WITHIN REACH.
[2024-07-17] MEDS ORDERED: Metoclopramide HCl 10 MG Tab PO PRN (16:45)
[2024-07-17 19:38] VITALS: BP 144/79
[2024-07-17] MEDS ORDERED: CefTRIAXone Sodium 1,000 MG in NS 100 ML IV SCH (21:00)
[2024-07-18 04:34] VITALS: BP 152/87
[2024-07-18 04:45] LABS: BASOPHILS ABSOLUTE AUTO 0.03 K/mm3 (0.00-0.23); BASOPHILS PERCENT AUTO 0 % (0-2); EOSINOPHILS ABSOLUTE AUTO 0.05 K/mm3 (0.00-0.68); EOSINOPHILS PERCENT AUTO 0 % (0-6); Hematocrit 37.9 % (37.0-53.0); Hemoglobin 12.7 g/dL (13.5-17.5); IMMATURE GRAN ABSOLUTE AUTO 0.74 K/mm3 (0.00-0.10); IMMATURE GRAN PERCENT AUTO 5 % (0-1); LYMPHOCYTES ABSOLUTE AUTO 0.96 K/mm3 (0.84-5.20); LYMPHOCYTES PERCENT AUTO 6 % (21-46); MONOCYTES ABSOLUTE AUTO 1.09 K/mm3 (0.16-1.47); MONOCYTES PERCENT AUTO 7 % (4-13); Mean Corpuscular HGB 29.8 pg (26.0-34.0); Mean Corpuscular HGB Conc 33.5 g/dL (31.5-36.5); Mean Corpuscular Volume 89 fL (80-100); Mean Platelet Volume 10.2 fL (9.1-12.4); NEUTROPHILS ABSOLUTE AUTO 12.89 K/mm3 (1.96-9.15); NEUTROPHILS PERCENT AUTO 82 % (41-73); Platelet Count 285 K/mm3 (150-400); RDW Coefficient Variation 18.6 % (11.7-14.2); Red Blood Cell Count 4.26 M/mm3 (4.30-5.90); White Blood Cell Count 15.76 K/mm3 (4.00-11.30)
[2024-07-18 05:13] LABS: Albumin, Blood 1.7 g/dL (3.4-5.0); Anion Gap 15 mmol/L (3-11); Blood Urea Nitrogen 75 mg/dL (8-24); Bun/Creatinine Ratio 37.7 (12.0-20.0); CO2, Blood 20 mmol/L (21-32); Calcium, Blood 9.4 mg/dL (8.5-10.1); Chloride, Blood 103 mmol/L (98-108); Creatinine, Blood 1.99 mg/dL (0.60-1.20); Glomerular Filtration Rate 37 (60-); Glucose, Blood 67 mg/dL (70-99); Phosphorus, Blood 4.2 mg/dL (2.5-4.9); Potassium, Blood 4.4 mmol/L (3.5-5.5); Sodium, Blood 134 mmol/L (136-145)
--- NOTE | 2024-07-18 05:19 | NUR ---
RECEIVING SPECIALIST SUMMARY NO ACUTE CHANGES THIS SHIFT. PT AAOX4 AND PLEASANT, CALLS APPROPRIATELY. HAS BEEN UP TO BATHROOM A COUPLE TIMES TONIGHT AND HAS VOIDED AND HAD A BM. MEDICATED FOR ABD PAIN X1 TONIGHT WELL ONCE FOR NAUSEA. CONTINUOUS IV FLUIDS RUNNING THROUGH THE NIGHT. RENAL FUNCTION SLIGHTLY BETTER THIS MORNING WITH LABS. VSS, WILL CONTINUE TO MONITOR.
[2024-07-18 07:39] VITALS: BP 159/91
[2024-07-18] MEDS ORDERED: Pregabalin 25 MG Capsule PO SCH (09:00)
[2024-07-18] MEDS ORDERED: AmLODIPine Besylate 5 MG Tab PO SCH (09:00)
[2024-07-18] MEDS ORDERED: Lactated Ringer's 1,000 ML IV SCH (11:50)
[2024-07-18] MEDS ORDERED: Polyethylene Glycol 3350 17 gm PO SCH (11:55)
[2024-07-18 14:58] VITALS: BP 135/78
--- NOTE | 2024-07-18 16:40 | NUR ---
SHIFT SUMMARY PT REPORTS FEELING BETTER TODAY. CONTINUING IV HYDRATION PER ORDERS. MANAGING CHRONIC ABD PAIN + NAUSEA WITH 2 ROXICODONE + ZOFRAN. PT REPORTS HAVING A BETTER APPETITE TODAY, BUT STAFF AND FAMILY STILL ENCOURAGING PO INTAKE. UP TO RESTROOM WITH 1 ASSIST USING FWW. SHOWERED TODAY. DR. ERVIN CAME IN AND DISCUSSED CANCER TREATMENT PLAN WITH PT AND FAMILY. FAMILY MEMBERS AT BEDSIDE FOR SUPPORT. USES CALL LIGHT APPROPRIATE. PLAN FOR REPEAT LABS IN AM.
--- NOTE | 2024-07-18 19:37 | NUR ---
PT SPOUSE TOOK HOME CHEMO PILLS.
[2024-07-18 20:03] VITALS: BP 155/80
[2024-07-18] MEDS ORDERED: Protein Supplement 30 ML UD PO SCH (21:00)
[2024-07-19 00:21] VITALS: BP 151/86
[2024-07-19 02:25] VITALS: BP 119/73
[2024-07-19 04:33] LABS: Hemoglobin 12.9 g/dL (13.5-17.5); Mean Corpuscular HGB 29.2 pg (26.0-34.0); Mean Corpuscular HGB Conc 32.3 g/dL (31.5-36.5); Mean Corpuscular Volume 91 fL (80-100); Mean Platelet Volume 9.9 fL (9.1-12.4); NRBC ABSOLUTE 0.03 K/mm3 (0.00-0.02); NRBC Auto 0.2 /100 WBC (0.0-0.2); Platelet Count 316 K/mm3 (150-400); RDW Coefficient Variation 19.1 % (11.7-14.2); RDW Standard Deviation 60.9 fL (35.1-46.3); Red Blood Cell Count 4.42 M/mm3 (4.30-5.90); White Blood Cell Count 15.64 K/mm3 (4.00-11.30)
[2024-07-19 04:51] LABS: Albumin, Blood 1.8 g/dL (3.4-5.0); Albumin/Globulin Ratio 0.4 (0.8-1.8); BAND PERCENT MAN 5 % (0-8); BASOPHILS PERCENT MAN 0 % (0-2); Bilirubin, Total 9.1 mg/dL (0.1-1.0); Bun/Creatinine Ratio 36.5 (12.0-20.0); Calcium, Blood 9.2 mg/dL (8.5-10.1); Creatinine, Blood 1.92 mg/dL (0.60-1.20); EOSINOPHILS ABSOLUTE MAN 0.46 K/mm3 (0.00-0.68); EOSINOPHILS PERCENT MAN 3 % (0-6); Globulin, Blood 4.1 g/dL (2.2-4.0); LYMPHOCYTES ABSOLUTE MAN 0.31 K/mm3 (0.84-5.20); LYMPHOCYTES PERCENT MAN 2 % (21-46); MONOCYTES ABSOLUTE MAN 0.46 K/mm3 (0.16-1.47); MONOCYTES PERCENT MAN 3 % (4-13); MYELOCYTE ABSOLUTE MAN 0.46 K/mm3 (0.00-0.00); MYELOCYTE PERCENT MAN 3 % (0-0); NEUTROPHILS ABSOLUTE MAN 13.91 K/mm3 (1.96-9.15); Potassium, Blood 4.4 mmol/L (3.5-5.5); SEG NEUTROPHILS PERCENT MAN 84 % (41-73); TOTAL CELLS COUNTED 100; Total Protein, Blood 5.9 g/dL (6.4-8.2)
[2024-07-19 07:18] VITALS: BP 127/93
--- NOTE | 2024-07-19 07:54 | NUR ---
SHIFT SUMMARY NOC. PT ADMIT FOR MARY. FLUIDS RUNNING PER EMAR. PT VOIDING URINE. PT HAS HX OF CANCER WITH METS. PT MEDICATED FOR PAIN IN ABDOMEN WITH REPORTED RELIEF OF SX. PT REPORTED NAUSEA, NO VOMIT EPISODES. PT AWAKE MOST OF THE NIGHT. PT DECLINED NON PHARMACOLOGICAL INTERVENTIONS FOR NAUSEA WHEN OFFERED. PT MAKES NEEDS KNOWN AND CALLS APPROPRIATELY. CALL LIGHT IN REACH.
[2024-07-19] MEDS ORDERED: MetroNIDAZOLE 500MG/NS 100 ml 100 ML IV SCH ×2 (08:35→18:00)
[2024-07-19] MEDS ORDERED: Zinc Sulfate 220 MG Cap (Provides 50MG) PO SCH (09:00)
[2024-07-19] MEDS ORDERED: Lactated Ringer's 1,000 ML IV ONE (09:50)
[2024-07-19] MEDS ORDERED: Polyethylene Glycol 3350 17 gm PO SCH (10:35)
[2024-07-19] MEDS ORDERED: Sennosides 8.6 MG Tab PO SCH (10:35)
--- NOTE | 2024-07-19 10:35 | NUR ---
FLUID ORDERS VS PITTING EDEMA DISCUSSED FLUID ORDERS VS. PT'S +4 PITTING EDEMA TO BLE WITH DR RICHMOND. INSTRUCTED TO GIVE FLUIDS ORDERED.
[2024-07-19] MEDS ORDERED: Azithromycin 500 MG in NS 250 ML IV SCH (13:05)
[2024-07-19] MEDS ORDERED: Vancomycin HCL 2,500 MG in NS 500 ML IV ONE (13:15)
--- NOTE | 2024-07-19 13:15 | NUR ---
DR RICHMOND IN TO SEE PT.
--- NOTE | 2024-07-19 13:35 | NUR ---
PT TO CT.
--- NOTE | 2024-07-19 13:55 | NUR ---
PT BACK FROM CT.
[2024-07-19] MEDS ORDERED: Ondansetron HCl 2 MG / ML 2ML Vial IV PRN (14:10)
[2024-07-19] MEDS ORDERED: Metoclopramide HCl 10 MG Tab PO PRN (14:10)
--- NOTE | 2024-07-19 14:33 | NUR ---
SCDS PLACED IN PATIENTS ROOM.DECLINED TO WEAR TILL NIGHT TIME.RN NOTIFIED
[2024-07-19 15:05] VITALS: BP 124/71
--- NOTE | 2024-07-19 15:59 | NUR ---
SUMMARY PT RECEIVING FLUIDS AND ABX PER ORDERS. REC'D CTA OF ABDOMEN THIS SHIFT. PT C/O OF NAUSEA, MEDICATED PER ORDERS. SITTING UP ON EDGE OF BED. REPORT GIVEN AND CARE TURNED OVER TO SARI LIMA.
[2024-07-19] MEDS ORDERED: Meropenem 2,000 MG in NS 250 ML IV SCH (16:00)
--- NOTE | 2024-07-19 18:26 | NUR ---
dvt prevention: ORDER FOR SCD'S, PT REFUSED. ASKED FOR MIGUEL HOSE TO BE PLACED. XXL MIGUEL HOSE PLACED TO BLE. LEGS ELEVATED IN BED. PITTING EDEMA NOTED TO BOTH LEGS.
--- NOTE | 2024-07-19 18:39 | NUR ---
PHYSICIAN CONTACT PER DR. RICHMOND - D/C IV FLUIDS AND ALL ABX. ORDER ROCEPHIN 1GM QD AND FLAGYL 500MG Q8.
[2024-07-19 20:26] VITALS: BP 142/76
[2024-07-19] MEDS ORDERED: CefTRIAXone Sodium 1,000 MG in NS 100 ML IV SCH (21:00)
[2024-07-20 03:23] VITALS: BP 165/88
[2024-07-20] MEDS ORDERED: NS 250 ML IV PRN (06:25)
[2024-07-20 07:04] LABS: Hematocrit 32.1 % (37.0-53.0); Hemoglobin 10.6 g/dL (13.5-17.5); Mean Corpuscular HGB 29.6 pg (26.0-34.0); Mean Corpuscular Volume 90 fL (80-100); Mean Platelet Volume 10.3 fL (9.1-12.4); NRBC ABSOLUTE 0.05 K/mm3 (0.00-0.02); NRBC Auto 0.3 /100 WBC (0.0-0.2); Platelet Count 295 K/mm3 (150-400); RDW Coefficient Variation 18.8 % (11.7-14.2); RDW Standard Deviation 59.7 fL (35.1-46.3); Red Blood Cell Count 3.58 M/mm3 (4.30-5.90); White Blood Cell Count 15.83 K/mm3 (4.00-11.30)
[2024-07-20 07:12] VITALS: BP 144/76
[2024-07-20 07:29] LABS: BAND PERCENT MAN 2 % (0-8); BASOPHILS PERCENT MAN 0 % (0-2); EOSINOPHILS PERCENT MAN 0 % (0-6); LYMPHOCYTES ABSOLUTE MAN 0.47 K/mm3 (0.84-5.20); LYMPHOCYTES PERCENT MAN 3 % (21-46); METAMYELOCYTE ABSOLUTE MAN 0.15 K/mm3 (0.00-0.00); METAMYELOCYTE PERCENT MAN 1 % (0-0); MONOCYTES ABSOLUTE MAN 0.63 K/mm3 (0.16-1.47); MONOCYTES PERCENT MAN 4 % (4-13); NEUTROPHILS ABSOLUTE MAN 14.56 K/mm3 (1.96-9.15); SEG NEUTROPHILS PERCENT MAN 90 % (41-73); TOTAL CELLS COUNTED 100
[2024-07-20 07:59] LABS: Albumin, Blood 1.4 g/dL (3.4-5.0); Albumin/Globulin Ratio 0.5 (0.8-1.8); Bilirubin, Total 7.5 mg/dL (0.1-1.0); Bun/Creatinine Ratio 36.6 (12.0-20.0); Calcium, Blood 7.4 mg/dL (8.5-10.1); Creatinine, Blood 1.23 mg/dL (0.60-1.20); Globulin, Blood 2.7 g/dL (2.2-4.0); Total Protein, Blood 4.1 g/dL (6.4-8.2)
--- NOTE | 2024-07-20 08:32 | NUR ---
SHIFT SUMMARY NOC. PT ADMIT FOR MARY, PT ALSO HAS HX OF CANCER WITH METS. PT MEDICATED FOR PAIN AND NAUSEA, NO VOMITING EPISODES. PT VOIDING URINE AND TOLERATING MINIMAL PO INTAKE. BLOOD SUGAR IN THE 70S AND ENCOURAGED PO INTAKE. PT DENIES SX OF HYPOGLYCEMIA. PT LOST IV ACCESS AT TIME FOR FLAGYL ABX, NO NEW PERIPHERAL OBTAINED AFTER X2 ATTEMPTS BY FLOOR RN ELICEO. NEW ORDER RECEIVED FROM HOSPITALIST TO ACCESS MEDIPORT. FLAGYL GIVEN LATE R/T NO ACCESS. NOTIFIED ONCOMING DAY SHIFT RN AND PHARMACY OF LATE MEDICATION. PT MAKES NEEDS KNOWN AND CALLS APPROPRIATELY.
[2024-07-20] MEDS ORDERED: Lactated Ringer's 1,000 ML IV SCH (09:00)
[2024-07-20] MEDS ORDERED: Potassium Chloride 40 MEQ in NS 250 ML IV ONE (09:30)
--- NOTE | 2024-07-20 09:35 | NUR ---
DR AZIZA ERVIN OK FOR DISCHARGE HOME. HE HAS PLANNED FOLLOW UP THROUGH [facility]. CARE ONGOING.
--- NOTE | 2024-07-20 12:08 | NUR ---
FLAGYL UNABLE TO INFUSE FLAGYL AT 1000 D/Y K RIDER INFUSING. PT ONLY HAS A MEDIPORT ACCESS. DR RICHMOND ACRENZO.
[2024-07-20] MEDS ORDERED: METO10 PO (12:19)
[2024-07-20] MEDS ORDERED: JUVEN PACKET1 EAC3 PO (12:20)
[2024-07-20] MEDS ORDERED: ZINC220 PO (12:21)
[2024-07-20] MEDS ORDERED: Vancomycin HCL 1,250 MG in NS 250 ML IV SCH (14:00)
--- NOTE | 2024-07-20 15:40 | NUR ---
DISCHARGE PT DISCHARGE HOME. MEDIPORT DE ACCESSED PER PROTCOL. BAND AIDE PLACEDOVER SITE. PT BELONGINGS PACKED. FAMILY HERE TO TAKE HIM HOME. DISCHARGE PACKET REVIEWED. PT ESCORTEDOUT VIA W/C ACCOMPANIED BY PAID SEARCH SPECIALIST. CARE ONGOING.
--- NOTE | 2024-07-23 23:34 | NUR ---
REVIEWED INFO FOR [facility]LE[facility] FOR PT'S CURRENT ER VISIT THERE
== END 2024-07-20 15:51 | disposition home or self-care (01) | DRG 683 ==
LOC: ER 14:26 → SURS 14:27 → ERHOLD 14:27 → SURS 07-17 05:19
PROVIDERS: Emergency Medicine; Family Medicine; Student in an Organized Health Care Education/Training Program; ADMIT Student in an Organized Health Care Education/Training Program
PROC: 5A09357 Assistance with Respiratory Ventilation, Less than 24 Consecutive Hours, Continuous Positive Airway Pressure (ICD-10-PCS; principal; 2024-07-19)
DX: N17.9 Acute kidney failure, unspecified (principal); C18.9 Malignant neoplasm of colon, unspecified; C78.7 Secondary malignant neoplasm of liver and intrahepatic bile duct; C78.00 Secondary malignant neoplasm of unspecified lung; N39.0 Urinary tract infection, site not specified; E87.20 Acidosis, unspecified; C77.2 Secondary and unspecified malignant neoplasm of intra-abdominal lymph nodes; E87.1 Hypo-osmolality and hyponatremia; E11.649 Type 2 diabetes mellitus with hypoglycemia without coma; G47.33 Obstructive sleep apnea (adult) (pediatric); E86.0 Dehydration; E11.22 Type 2 diabetes mellitus with diabetic chronic kidney disease; I12.9 Hypertensive chronic kidney disease with stage 1 through stage 4 chronic kidney disease, or unspecified chronic kidney disease; N18.9 Chronic kidney disease, unspecified; E86.1 Hypovolemia; Z88.0 Allergy status to penicillin; Z90.49 Acquired absence of other specified parts of digestive tract; Z79.891 Long term (current) use of opiate analgesic; Z79.84 Long term (current) use of oral hypoglycemic drugs
CPT/HCPCS: 36415; 74174; 74177; 80048; 80053; 80069; 81001; 82010; 82140; 82570; 82803; 82947; 83605; 83735; 84100; 84145; 84300; 85025; 87040; 87086; 93005; 93010; 94760; 96361; 96365; 96366; 96368; 96372; 96375; 96376; 99285-25; A9270; G0378; J0456; J0696; J1171; J1642; J1650; J2185; J2405; J3370; J3480; J7030; J7040; J7050; J7120; Q9967